=== PATIENT | male | born 1935 | race Caucasian/White ===

== ENCOUNTER 2023-08-09 22:54 | Inpatient (IN) | payer MEDICARE, BC, SELFPAY ==
[2023-08-09 19:25] VITALS: BMI 25.2
[2023-08-09 19:27] VITALS: BP 154/78
--- NOTE | 2023-08-09 20:08 | ED.GENMED ---
History of Present Illness
General
Chief Complaint: Fall
Source: patient
Exam Limitations: none
Time Seen by Provider: 08/09/23 19:28
Travel History
Have you had any contact with someone who has COVID-19?: No
Do you have any symptoms of coronavirus? Fever > 100 degrees, chills, cough, shortness of breath, sore throat, loss of taste or smell, muscle aches, or headache?: No
History of Present Illness
History of Present Illness:
This is a 87 year old male that comes in with c/o left upper leg pain. States that he and his care give where doing a Jigsaw puzzle and one of the pieced fell on the floor. States that he bend over to pear picker the piece and he started to slip
backward. States that he fell injury the left leg. States that he did not hit his head or any LOC. States that when he tries to move the left leg he has pain. Denies any fever, chills, chest pain, SOB, abd pain, nausea, vomiting, headache,
dizziness.
Past History
Past History
ED Past Medical History: CAD, Cancer (Colon, Prostate, Skin, Rectal), HTN, Hypercholesterolemia, CO, Psychiatric (Depression) and Other (PNA, IBS)
ED Past Surgical History: Bowel resection, Cardiac (Stent), Orthopedic (Left rotator cuff, Left hip surgery, ), Tonsilectomy and Other (Ileostomy, Hernia repair, Rectum removed, )
Social History
Tobacco: Non-smoker
Alcohol: Occasional
Drug: None
Personal:
Living: alone (Has care givers)
Employment: Employed
Family History
Family History: Hypertension
Review of Systems
Review of Systems
All Other Systems: ROS reviewed and negative except as documented in HPI and ROS
Constitutional: Reports no symptoms; Denies fever or chills
EENT: Reports no symptoms
Respiratory: Reports no symptoms; Denies cough or trouble breathing
Cardiac: Reports no symptoms; Denies chest pain
ABD/GI: Reports other (Ileostomy); Denies abdominal pain, nausea or vomiting
: Reports other (Indwelling pringle catheter)
Musculoskeletal: Reports joint pain (Left hip/femur pain)
Skin: Reports no symptoms
Neurological: Reports no symptoms; Denies dizzy
Psychiatric: Reports no symptoms
Phy Exam
General Physical Exam
General Presentation: no apparent distress
General age: appears stated age
General Skin: warm and dry
General Habitus: elderly
General Mental: alert
General Hydration: appears well hydrated
ENT Exam
ENT Exam: TM's normal, pharynx normal and neck supple
Eye Exam
Eye Exam: EOMI
Cardiovascular Exam
Cardiovascular Exam: regular rate/rhythm, no edema and normal peripheral pulses
Pulmonary Exam
Pulmonary Exam: no respiratory distress, chest non tender, no rhonchi, no wheezing, no cough and other (Fine crackles at bases)
Gastrointestinal Exam
Gastrointestinal Exam: normal bowel sounds, non tender, soft, no organomegaly, no pulsatile mass and non distended
Musculoskeletal Exam
Musculoskeletal Exam: no edema and other (Left upper leg tender to palpation. LImited movement due to pain. Negative for any shortening. or rotation)
Skin Exam
Skin Exam: normal color, warm/dry, no rash, no petechia and other (Skin cancer on top of head)
Psychiatric Exam
Psychiatric Exam: normal mood/affect
Course
Orders/Labs/Results
Orders:
Orders
08/09/23 20:05
CBC/With Diff [Complete Blood Count/With Diff] Urgent
CMP [Comprehensive Metabolic Panel] Urgent
08/09/23 20:08
Hip, Left 2-3 Views [CR Hip - LT w/wo Pel 2-3 Vw*] Urgent
Comment:
Reason For Exam: fALL, PAIN
Include a pelvis x-ray?: Yes
08/09/23 21:00
Acetaminophen [Tylenol] 1,000 mg PO NOW STA
Femur, Left 2 View [CR Femur - Left Min 2 Vw] Urgent
Comment:
Reason For Exam: Pain, fall
Abnormal Lab Results
08/09/23
20:05
RBC 4.43 L 10^6/uL
(4.70-6.10)
MCV 100.0 H fL
(80.0-94.0)
MCH 33.0 H pg
(27.0-31.0)
MPV 12.1 H fL
(7.4-10.4)
Absolute Monos (auto) 1.0 H 10^3/uL
(0.1-0.6)
Monocytes % 10.2 H %
(1.7-9.3)
BUN 34 H mg/dl
(9-20)
Creatinine 2.0 H mg/dL
(0.7-1.3)
Glucose 123 H mg/dl
(70-99)
08/09/23 20:05
08/09/23 20:05
Anemia, Chronic renal insufficiency, Glucose nonfasting.
Vital Signs
Initial and Last Documented VS:
Initial Vital Signs
Temp Pulse Resp BP Pulse Ox
98.1 F 69 20 154/78 98
08/09/23 19:27 08/09/23 19:27 08/09/23 19:27 08/09/23 19:27 08/09/23 19:27
Last Documented Vital Signs
Temp Pulse Resp BP Pulse Ox
98.1 F 69 20 154/78 98
08/09/23 19:27 08/09/23 19:27 08/09/23 19:27 08/09/23 19:27 08/09/23 19:27
MDM/Problems Addressed
Differential Diagnosis Includes:
Left hip fracture. Left femur fracture
MDM/Problems Addressed:
This is a 87 year old male that comes in with c/o left hip/femur pain. States that he bent over to pear picker a puzzle piece and he fell backward.
Will check labs and X-ray
Back into see patient. Explained that the Prosthesis in place and here does not appear to be an obvious fracture. However, there is a questionable area that could be Periprosthetic fracture. Patient was unable to walk when he stood. Will admit.
Hospitalist notified.
Chronic conditions affecting care:
NA
Acute Exacerbation and/or Progression of Chronic Illness:
NA
*Pulse Oximetry
Patient hypoxic: no
*EKG
Interpreted by ED Provider?: NA
Rate: EKG- N/A
*Deputy Chief Counsel Interpretation
Rate: Deputy Chief Counsel- N/A
*Critical Care Note
Total Time (30-74mins, 75-104mins- exclusive of procedures): Not Applicable
ED Attending Note
-
Portions of this chart may have been created with voice recognition software.� Occasional wrong word or��sound alike� substitutions may have occurred due to the inherent limitations of voice recognition software.
Discharge Plan
Departure
Patient Disposition: Admit
Date of Disposition: 08/09/23
Time of Disposition: 21:51
Admit to: Med/Surg
Presentation/result/management discussed w/ accepting MD/DO: Hospitalist
Patient with high blood pressure during this ER visit?: Yes
Condition: Good
Covid-19: Not Applicable
Discharge Problem:
Accidental fall, Questionable Periprosthetic fracture, Ambulatory dysfunction
Prescriptions:
No Action
latanoprost 1 DROP drops
1 drp BOTH EYES HS
Patient Comments:
BOTH EYES
ranolazine 500 MG tablet extended release 12 hr
1,000 mg PO BID Qty: 120 0RF
Eliquis 2.5 MG tablet
2.5 mg PO BID Qty: 120 0RF
aspirin 81 mg Tablet,Delayed Release (Dr/Ec)
81 mg PO DAILY
tamsulosin 0.4 mg capsule
0.4 mg PO QPM
atorvastatin 40 mg Tablet
40 mg PO DAILY Qty: 30 0RF
clopidogrel 75 mg Tablet
75 mg PO DAILY Qty: 30 0RF
isosorbide mononitrate 60 mg Tablet Extended Release 24 Hr
60 mg PO BID Qty: 60 0RF
metoprolol succinate 25 mg Tablet Extended Release 24 Hr
12.5 mg PO DAILY Qty: 30 0RF
Referrals:
Robbin Haile MD [Family Provider] -
Interventions
Interventions:
*Risk Screen - Suicide Last Done: 08/09/23 19:27
*General Assessment Last Done: 08/09/23 19:27
*Neglect/Abuse Screening Last Done: 08/09/23 19:27
ED-Musculoskeletal Assessment Last Done: 08/09/23 19:44
ED- Neurological Assessment Last Done: 08/09/23 19:44
ED-Skin Assessment Last Done: 08/09/23 19:44
[2023-08-09 20:11] LABS: % Basophils 0.3 % (0-2); % Eosinophils 2.4 % (0-6); % Immature Granulocytes 0.4 % (0-0.5); % Lymphocytes 20.9 % (20.5-51.1); % Monocytes 10.2 % (1.7-9.3); % Neutrophils 65.8 % (42.2-75.2); Absolute Eosinophils 0.2 10^3/uL (0-0.7); Absolute Lymphocytes 1.9 10^3/uL (1.2-3.4); Absolute Neutrophils 6.1 10^3/uL (1.4-6.5); Hematocrit 44.3 % (39.0-52.0); Hemoglobin 14.6 g/dL (13.0-18.0); Mean Platelet Volume 12.1 fL (7.4-10.4); Nucleated Red Blood Cells % 0 % (-); Platelet Count 141 10^3/uL (130-400); Red Blood Cell Count 4.43 10^6/uL (4.70-6.10); Red Cell Dist. Width 13.9 % (11.5-14.5); White Blood Cell Count 9.3 10^3/uL (4.8-10.8)
[2023-08-09 20:28] LABS: ALT (SGPT) 27 U/L (0-50); AST (SGOT) 38 U/L (17-59); Albumin 3.7 g/dl (3.5-5.0); Alkaline Phosphatase 82 U/L (38-126); Blood Urea Nitrogen 34 mg/dl (9-20); Carbon Dioxide 24 mmol/L (22-30); Chloride 103 mmol/L (98-107); Glucose 123 mg/dl (70-99); Potassium 4.5 mmol/L (3.5-5.1); Sodium 137 mmol/L (135-145); Total Bilirubin 0.7 mg/dl (0.2-1.3); Total Protein 6.5 g/dl (6.3-8.2); eGFR 31.71
--- NOTE | 2023-08-09 22:35 | HPS.HSE ---
Addendum entered and electronically signed by Vincent Arredondo DO 08/09/23 23:17:
Patient seen and examined independently. Agree with findings and plan as set forth by Sil Lopez PA-C.
Patient is an 87y M with PMH significant for ASCVD, A-Fib and CHF who presents to ED complaining of R hip pain s/p fall at home. Patient states that he bent to pick something up from the floor and lost his balance. He fell, landing on his L
side. Patient notes immediate pain in the L hip and was unable to get up or bear weight without significant pain. Patient presented to the ED for further evaluation.
Ass:
Left Hip Pain - Suspected Periprosthetic Fracture of the Left Hip
Fall at Home
ASCVD
CKD III
Ischemic Cardiomyopathy / Chronic HFrEF
Paroxysmal Atrial Fibrillation
Chronic Hypotension
Plan:
Admit for further evaluation and treatment.
Pain control, NPO, non-weight bearing overnight.
Ortho eval in the AM for further recommendations.
Check CT for further evaluation of the L hip / area.
Will hold Eliquis acutely in event that patient does require any operative intervention.
Continue other usual outpatient medications.
PT / OT evaluations once cleared by Ortho.
Original Note:
Family Physician
-
Family Physician: Robbin Haile
Chief Complaint
-
Fall
History of Present Illness
Patient is an 87-year-old male past medical history of CAD, CHF, A-fib and CKD who presents with left upper leg pain following a fall. Patient states he was doing a jigsaw puzzle with his caregiver when one of the pieces fell on the floor. He
states he bent over to sisal picker the piece, lost his balance and fell backwards. He states he fell landing on his left leg. He denies hitting his head during the event. Patient notes increased pain with movement of his left leg, and with attempts to
ambulate. Work-up in the emergency department revealed a possibly left periprosthetic hip fracture.
Medical History
Past Medical History
Past Medical History: Reports Other
Additional Past Medical History:
Coronary Artery Disease s/p Stent
Chronic HFrEF
Ischemic Cardiomyopathy
Paroxysmal Atrial Fibrillation
Essential Hypertension
Hyperlipidemia
CKD Stage 3B
Prostate Cancer s/p Radioactive Seed Implants
Colon Cancer / Rectal Cancer
Past Surgical History: Reports Other
Additional Past Surgical History:
Cardiac Stent
Partial Colectomy followed by Total Colectomy with Ileostomy
Hernia Repair
Left Total Hip Replacement
Left Rotator Cuff
Social History
Tobacco: Non-smoker
Alcohol: Occasional
Drug: None
Employment: Retired
Family History
Family History: Not pertinent
Allergies / Home Medications
Allergies reflects when Allergies were last updated in [employer].
Home Medications with original date entered in [employer]
Allergy/Medication List:
Allergies
Allergy/AdvReac Type Severity Reaction Status Date / Time
No Known Allergies Allergy Verified 09/16/22 19:31
Home Medications
latanoprost 0.005 % eye drops 1 drp BOTH EYES HS Eye condition 05/22/11
apixaban 2.5 mg tablet (Eliquis) 2.5 mg PO BID #120 tabs 11/06/20
ranolazine 500 mg tablet,extended release,12 hr 1,000 mg PO BID #120 tabs 11/06/20
aspirin 81 mg tablet,delayed release 81 mg PO DAILY Blood clot prevention/tx 09/16/22
atorvastatin 40 mg tablet 40 mg PO DAILY #30 tabs 09/20/22
metoprolol succinate 25 mg tablet,extended release 24 hr 12.5 mg PO DAILY #30 tabs 09/20/22
isosorbide mononitrate 60 mg tablet,extended release 24 hr 60 mg PO HS 08/09/23
midodrine 2.5 mg tablet 2.5 mg PO BIDPRN PRN SBP Less Than 120 08/09/23
torsemide 5 mg tablet 5 mg PO DAILY 08/09/23
Review of Systems
-
A 12 point ROS was completed and negative except as noted: Yes
Constitutional: Denies Fever or Chills
Respiratory: Denies Cough or Trouble Breathing
Cardiac: Denies Chest Pain or Palpitations
Physical Exam
Vital Signs
Vital Signs
Temp Pulse Resp BP Pulse Ox
98.1 F 69 20 154/78 98
08/09/23 19:27 08/09/23 19:27 08/09/23 19:27 08/09/23 19:27 08/09/23 19:27
Physical Exam
General: Comfortable and Conversant
HEENT: Anicteric and Moist mucous membranes
Respiratory: Clear and Non Labored Respirations
Cardiac: S1/S2 and Regular Rhythm
GI: Soft, Non Tender and Ostomy
Rectal: Deferred by Provider
Musculoskeletal: No Clubbing, No Cyanosis and No Edema
Skin: Warm and Dry
Neuro: Awake, Alert, Oriented and Nonfocal/grossly intact
Laboratory Results
-
08/09/23 20:05
08/09/23 20:05
Laboratory Results
Total Bilirubin 0.7 mg/dl (0.2-1.3) 08/09/23 20:05
AST 38 U/L (17-59) 08/09/23 20:05
ALT 27 U/L (0-50) 08/09/23 20:05
Alkaline Phosphatase 82 U/L (38-126) 08/09/23 20:05
Data Reviewed
-
Diagnostic Radiology: Image Personally Visualized and interpreted
Lab Data: Labs Reviewed by me
Impression/Plan
-
Left Hip Pain, concern for periprosthetic hip fracture
-Consult Ortho
-Check CT scan
-Continue non-weight bearing status
-Start Tylenol 1000mg TID with oxycodone prn for breakthrough
-Hold Eliquis should patient require intervention
Coronary Artery Disease s/p Stent
-Continue aspirin
-Continue isosorbide mononitrate and ranolazine
Chronic HFrEF
Ischemic Cardiomyopathy
-Continue torsemide
-Continue fluid restriction
-Monitor Is&Os and Daily Weights
Paroxysmal Atrial Fibrillation
-Eliquis on hold should patient require procedure
-Continue metoprolol for rate control
Hypotension
-Continue midodrine prn
Hyperlipidemia
-Continue atorvastatin
CKD Stage 3B
-Creatinine at baseline
Hx Prostate Cancer s/p Radioactive Seed Implants
Hx Colon Cancer / Rectal Cancer s/p Colectomy with Ileostomy
DVT proph: SCDs until able to resume Eliquis
Code Status: Full Code
[2023-08-09 23:30] VITALS: BP 125/75
[2023-08-10] MEDS: ROXICODONE 5 MG PO (00:32)
[2023-08-10 06:00] VITALS: BMI 24.9
--- NOTE | 2023-08-10 06:20 | PTCARENOTE ---
IV team notified that pt did have iv access when arriving from ED to unit.
[2023-08-10 06:35] LABS: Hematocrit 38.5 % (39.0-52.0); Hemoglobin 13.1 g/dL (13.0-18.0); Mean Platelet Volume 12.1 fL (7.4-10.4); Platelet Count 135 10^3/uL (130-400); Red Blood Cell Count 3.97 10^6/uL (4.70-6.10); Red Cell Dist. Width 13.6 % (11.5-14.5); White Blood Cell Count 9.4 10^3/uL (4.8-10.8)
[2023-08-10 06:58] LABS: Blood Urea Nitrogen 31 mg/dl (9-20); Calcium 8.7 mg/dl (8.4-10.2); Carbon Dioxide 25 mmol/L (22-30); Chloride 104 mmol/L (98-107); Estimated Creatinine Clearance 34 ml/min; Glucose 107 mg/dl (70-99); Potassium 4.3 mmol/L (3.5-5.1); Sodium 136 mmol/L (135-145); eGFR 35.98
--- NOTE | 2023-08-10 07:22 | W.PN.HOSP.TC ---
Today's Communication/Plan
-
Await CT of left hip
Orthopedic input
Continue to hold anticoagulation for possible intervention as needed
Stable hemodynamically no signs of any cardiorespiratory distress and renal status at baseline
Assessment / Plan
Assessment / Plan
Patient is an 87-year-old male past medical history of CAD, CHF, A-fib and CKD who presents with left upper leg pain following a fall.� Patient states he was doing a jigsaw puzzle with his caregiver when one of the pieces fell on the floor.� He
states he bent over to cherry picker operator the piece, lost his balance and fell backwards. He states he fell landing on his left leg.� He denies hitting his head during the event.� Patient notes increased pain with movement of his left leg, and with attempts to
ambulate. Work-up in the emergency department revealed a possibly left periprosthetic hip fracture.
:
�Left Hip Pain, concern for periprosthetic hip fracture
-Post mechanical fall
-Consult Ortho
-Check CT scan
-Continue non-weight bearing status
-Start Tylenol 1000mg TID with oxycodone prn for breakthrough
-Hold Eliquis should patient require intervention
Coronary Artery Disease s/p Stent
-Continue aspirin
-Continue isosorbide mononitrate and ranolazine
Chronic HFrEF
Ischemic Cardiomyopathy
-Continue torsemide
-Continue fluid restriction
-Monitor Is&Os and Daily Weights
Paroxysmal Atrial Fibrillation
-Eliquis on hold should patient require procedure
-Continue metoprolol for rate control
Hypotension
-Continue midodrine prn
Hyperlipidemia
-Continue atorvastatin
CKD Stage 3B
-Creatinine at baseline
Hx Prostate Cancer s/p Radioactive Seed Implants
Hx Colon Cancer / Rectal Cancer s/p Colectomy with Ileostomy
DVT proph: SCDs until able to resume Eliquis
Code Status: Full Code
Anticipated Discharge: 24 - 48 hours
Subjective/Interval History
-
Date of Service: August 10, 2023
Still referring pain on any attempted trying to elevate bed off plane of bed referred pain to the lateral aspect of his left hip and trochanteric area.
Objective Data
-
Labs:
Laboratory Results
08/09/23 08/10/23
20:05 05:16
WBC 9.3 9.4
Hgb 14.6 13.1
Hct 44.3 38.5 L
Plt Count 141 135
Sodium 137 136
Potassium 4.5 4.3
Chloride 103 104
Carbon Dioxide 24 25
BUN 34 H 31 H
Creatinine 2.0 H 1.8 H
Glucose 123 H 107 H
Calcium 9.0 8.7
Total Bilirubin 0.7
AST 38
ALT 27
Alkaline Phosphatase 82
Vital Signs:
Vital Signs
Temp Pulse Resp BP Pulse Ox
98.6 F 77 18 125/75 95
08/09/23 23:30 08/09/23 23:30 08/09/23 23:30 08/09/23 23:30 08/09/23 23:30
I&O
08/09/23 08/10/23 08/11/23
06:59 06:59 06:59
Intake Total 240 / 240
Output Total 1225 / 1225
Balance -985 / -985
Review of Systems
-
History Source: Patient
All other systems: Not reviewed unless documented
Constitutional: Reports No Symptoms
Musculoskeletal: Reports Muscle Pain, Muscle Stiffness, Arthralgias and Myalgias
Physical Exam
-
General: Well Developed
HEENT: Atraumatic
Respiratory: Clear to Auscultation
Cardiac: Irregular Rhythm
GI: Soft, Nontender and Ostomy (Ileostomy functioning/)
Musculoskeletal: Edema, Left Lower Extrem (He referred to our aspect near trochanteric prominence mild left groin pain especially on elevation)
Neuro: Awake and Nonfocal/Grossly Intact
Psych: Calm
Data Reviewed
-
Total Time Spent with Patient (in minutes): 56
Diagnostic Radiology: Report Reviewed by me (Still pending read but obvious prior left hip arthroplasty)
Labs: Labs Reviewed by me (Creatinine stable and in keeping with prior history of CKD 3B/hemoglobin 13.1)
[2023-08-10 07:25] VITALS: BP 147/67
--- NOTE | 2023-08-10 08:15 | W.PN.UPDATE ---
Addendum entered and electronically signed by Maycol Sanchez MD 08/10/23 09:36:
Patient seen and examined. Full consult dictated.
Original Note:
Update Note
Progress Note Update
Patient unfortunately had a fall yesterday injuring his left hip. He has inability to bear weight. X-rays here at [facility] show nondisplaced periprosthetic femur fracture. He is scheduled to undergo CT scan this morning. Prior left
hip placement was done by Dr Donaldson 10 years ago. Shilo on hold for now and would require 72-hour washout if surgery needs to be undertaken. Await CT scan for definitive treatment recommendations.
[2023-08-10] MEDS: TYLENOL 1000 MG PO ×3 (08:45→22:31)
[2023-08-10] MEDS: LIPITOR 40 MG PO (08:45)
[2023-08-10] MEDS: ASPIR LOW (ENTERIC COATED) 81 MG PO (08:45)
[2023-08-10] MEDS: DEMADEX 5 MG PO (08:46)
[2023-08-10] MEDS: RANEXA EXTENDED RELEASE 1000 MG PO ×2 (08:46→20:36)
[2023-08-10] MEDS: TOPROL XL 12.5 MG PO (08:46)
--- NOTE | 2023-08-10 13:06 | W.PN.UPDATE ---
Update Note
Progress Note Update
CT scan reviewed. Spoke with patient, caregiver and son. Nondisplaced fracture about what appears to be a stable bony ingrowth stem from his hip replacement 12 years ago by Anika at [place]. Recommend NWB for 4-6 weeks with reevaluation in
the office in [address] Villatoro for further recommendations. Explained that WB or falling may lead to a displaced fracture which would require revision surgery. Also explained the possibility of fracture not healing with conservative care.
Plan as above. Please contact with any further questions.
[2023-08-10 15:20] VITALS: BP 137/63
--- NOTE | 2023-08-10 16:32 | CM ---
Patient seen with family, initial assessment completed. Patient reports he lives in a two story home with a first floor set up, two steps to enter. Patient reports using a walker, VN in past but unsure with who, [facility]. Patient confirms PCP
Robbin Haile, pharmacy [facility]. CM will watch for PT/OT evaluations. CM will continue to follow for discharge planning needs.
Plan; dependent on PT evaluations/further recommendations.
[2023-08-10 20:56] LABS: Urine Albumin Trace (Neg - Trace); Urine Bilirubin Negative (Negative); Urine Character Clear (Clear); Urine Color Yellow; Urine Glucose Negative (Negative); Urine Ketone Negative (Negative); Urine Leukocyte 2+ (Negative); Urine Nitrite Positive (Negative); Urine Occult Blood 4+ (Negative); Urine Urobilinogen Negative (Neg - 1+)
[2023-08-10 21:12] LABS: Urine Bacteria Few (Negative); Urine Red Blood Cell >100 /HPF (0-2); Urine White Cell >100 /HPF (0-5)
[2023-08-10] MEDS: XALATAN OPHTHALMIC SOLUTION 1 DROP BOTH EYES (22:31)
[2023-08-10] MEDS: IMDUR (EXTENDED RELEASE) 60 MG PO (22:31)
[2023-08-11 05:42] VITALS: BMI 24.8
[2023-08-11 07:20] VITALS: BP 153/70
--- NOTE | 2023-08-11 07:53 | W.PN.HOSP.TC ---
Today's Communication/Plan
-
PT OT eval.
Assessment / Plan
Assessment / Plan
Physical exam:
General: Chronically ill
HEENT: Normocephalic, Atraumatic and Moist Mucous Membranes
Respiratory: Clear to Auscultation; Negative Wheezes, Rales or Rhonchi
Cardiac: Regular Rhythm and S1/S2
GI: Soft, Nontender and Nondistended. Ostomy in place
Musculoskeletal: Left hip discomfort. No Clubbing, No Cyanosis and No Edema
Neuro: Awake, Alert and Oriented
Psych: Calm
CT hip:
Oblique fracture periprosthetic femoral component left hip described on x-ray report is confirmed. Essentially nondisplaced.
A/P:
�Left Hip Pain, concern for periprosthetic hip fracture:
-Ortho consult appreciated
-NWB 4-6 wks recommended and repeat images in 3 wks.
-Restart Eliquis today
-PT OT eval pending
-Updated son at bedside today
Delirium:
-Multifactorial, in-hospital and narcotics and doubt infection (urine cx sent-->would cautiously interpret in the setting of afebrile and no leukocytosis)
Coronary Artery Disease s/p Stent
-Continue aspirin
-Continue isosorbide mononitrate and ranolazine and eliquis
Chronic HFrEF
Ischemic Cardiomyopathy
-Continue torsemide
-Continue fluid restriction
-Monitor Is&Os and Daily Weights
Paroxysmal Atrial Fibrillation
-Eliquis restarted
-Continue metoprolol for rate control
Hypotension
-Continue midodrine prn
Hyperlipidemia
-Continue atorvastatin
CKD Stage 3B
-Creatinine at baseline
-Creatinine 1.8 today
Hx Prostate Cancer s/p Radioactive Seed Implants
Hx Colon Cancer / Rectal Cancer s/p Colectomy with Ileostomy. Chronic Olguin.
DVT proph: SCDs and Eliquis
Code Status: Full Code
Anticipated Discharge: 24 - 48 hours
Subjective/Interval History
-
Date of Service: August 11, 2023
Patient alert and back to his baseline. Reported some hallucinations prior to today. Afebrile. Pain in the hip area is not a major issue but he has not moved much yet.
Objective Data
-
Vital Signs:
Vital Signs
Temp Pulse Resp BP Pulse Ox
98.6 F 54 18 137/63 97
08/10/23 15:20 08/10/23 15:20 08/10/23 15:20 08/10/23 15:20 08/10/23 15:20
I&O
08/10/23 08/11/23 08/12/23
06:59 06:59 06:59
Intake Total 240 / 240 840 / 840
Output Total 1225 / 1225 1050 / 1050
Balance -985 / -985 -210 / -210
Review of Systems
-
All other systems: Reviewed and negative
[2023-08-11] MEDS: TYLENOL 1000 MG PO ×2 (09:24→22:04)
[2023-08-11] MEDS: RANEXA EXTENDED RELEASE 1000 MG PO ×2 (09:25→20:34)
[2023-08-11] MEDS: ASPIR LOW (ENTERIC COATED) 81 MG PO (09:25)
[2023-08-11] MEDS: TOPROL XL 12.5 MG PO (09:25)
[2023-08-11] MEDS: LIPITOR 40 MG PO (09:26)
[2023-08-11] MEDS: DEMADEX 5 MG PO (09:26)
[2023-08-11] MEDS: ELIQUIS 2.5 MG PO ×2 (09:53→20:35)
--- NOTE | 2023-08-11 11:31 | WOUNDNOTE ---
PAYAL RN NOTE: Patient admitted for L hip periprosthetic femur fracture, see computer for complete PMH. Received patient in bed, on air overlay, caregiver at bedside. 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 Has own [employer] 2 piece
appliance in use, no leakage. Own supplies at bedside and states he is independent with care. Changes pouch 2 x per week, no issues with leakage. No reported stoma or peristomal skin issues states patient. Nurse Lay confirmed that sacrum and heels
are intact. Patient states plan is for discharge tomorrow.
[2023-08-11 13:25] VITALS: BP 99/47; PULSE 56; O2SAT 97
[2023-08-11 13:28] VITALS: BP 99/47; PULSE 56; O2SAT 97
--- NOTE | 2023-08-11 15:02 | CM ---
CM following re: discharge planning.
Reviewed pt's chart, met with pt.
PT and OT evaluations noted - SNF level of care recommended. Pt is aware, expressed his agreement. A list of SNFs provided to the pt. Pt preferred [facility].
A referral to [facility] made. Awaiting for determination.
CM will follow to assist pt with discharge to [facility].
[2023-08-11 15:15] VITALS: BP 124/56
[2023-08-11] MEDS: TYLENOL PO (16:15)
[2023-08-11] MEDS: IMDUR (EXTENDED RELEASE) 60 MG PO (22:04)
[2023-08-11] MEDS: XALATAN OPHTHALMIC SOLUTION 1 DROP BOTH EYES (22:04)
[2023-08-11 23:18] VITALS: BP 154/67
[2023-08-12 05:08] VITALS: BMI 24.7
[2023-08-12 05:59] LABS: Hematocrit 39.9 % (39.0-52.0); Hemoglobin 13.5 g/dL (13.0-18.0); Mean Corp Hgb Conc. 33.8 g/dL (33.0-37.0); Mean Corpuscular Hgb 32.8 pg (27.0-31.0); Mean Corpuscular Volume 96.8 fL (80.0-94.0); Mean Platelet Volume 11.8 fL (7.4-10.4); Platelet Count 134 10^3/uL (130-400); Red Blood Cell Count 4.12 10^6/uL (4.70-6.10); Red Cell Dist. Width 13.6 % (11.5-14.5); White Blood Cell Count 9.8 10^3/uL (4.8-10.8)
[2023-08-12 06:30] LABS: Blood Urea Nitrogen 36 mg/dl (9-20); Calcium 8.7 mg/dl (8.4-10.2); Carbon Dioxide 24 mmol/L (22-30); Chloride 104 mmol/L (98-107); Estimated Creatinine Clearance 36 ml/min; Glucose 87 mg/dl (70-99); Potassium 4.2 mmol/L (3.5-5.1); Sodium 137 mmol/L (135-145); eGFR 38.53
[2023-08-12 07:46] VITALS: BP 126/60
--- NOTE | 2023-08-12 08:34 | W.PN.HOSP.TC ---
Today's Communication/Plan
-
Continue current management. Discharge planning in progress
Assessment / Plan
Assessment / Plan
Physical exam:
General: Chronically ill
HEENT: Normocephalic, Atraumatic and Moist Mucous Membranes
Respiratory: Clear to Auscultation; Negative Wheezes, Rales or Rhonchi
Cardiac: Regular Rhythm and S1/S2
GI: Soft, Nontender and Nondistended. Ostomy in place
Musculoskeletal: Left hip discomfort. No Clubbing, No Cyanosis and No Edema
Neuro: Awake, Alert and Oriented
Psych: Calm
CT hip:
Oblique fracture periprosthetic femoral component left hip described on x-ray report is confirmed. Essentially nondisplaced.
A/P:
�Left Hip Pain, concern for periprosthetic hip fracture:
-Ortho consult appreciated
-NWB 4-6 wks recommended and repeat images in 3 wks.
-Restart Eliquis since 08/10
-PT OT eval recommending skilled rehab
-Updated son at bedside yesterday
Delirium:
-Multifactorial, in-hospital and narcotics
Bacteriuria:
-Doubt infection (urine cx sent-->would cautiously interpret in the setting of afebrile and no leukocytosis)
Coronary Artery Disease s/p Stent
-Continue aspirin
-Continue isosorbide mononitrate and ranolazine and eliquis
Chronic HFrEF
Ischemic Cardiomyopathy
-Continue torsemide
-Continue fluid restriction
-Monitor Is&Os and Daily Weights
Paroxysmal Atrial Fibrillation
-Eliquis restarted
-Continue metoprolol for rate control
Hypotension
-Continue midodrine prn
Hyperlipidemia
-Continue atorvastatin
CKD Stage 3B
-Creatinine at baseline
-Creatinine 1.8 today
Hx Prostate Cancer s/p Radioactive Seed Implants
Hx Colon Cancer / Rectal Cancer s/p Colectomy with Ileostomy. Chronic Olguin.
DVT proph: SCDs and Eliquis
Code Status: Full Code
Anticipated Discharge: Today
Subjective/Interval History
-
Date of Service: August 12, 2023
Patient seen and examined. Afebrile
Objective Data
-
Labs:
Laboratory Results
08/12/23
04:54
WBC 9.8
Hgb 13.5
Hct 39.9
Plt Count 134
Sodium 137
Potassium 4.2
Chloride 104
Carbon Dioxide 24
BUN 36 H
Creatinine 1.7 H
Glucose 87
Calcium 8.7
Vital Signs:
Vital Signs
Temp Pulse Resp BP Pulse Ox
98.2 F 53 16 126/60 95
08/12/23 07:46 08/12/23 07:46 08/12/23 07:46 08/12/23 07:46 08/12/23 07:46
I&O
08/11/23 08/12/23 08/13/23
06:59 06:59 06:59
Intake Total 840 / 840 1420 / 1420
Output Total 1050 / 1050 1600 / 1600
Balance -210 / -210 -180 / -180
[2023-08-12] MEDS: TOPROL XL 12.5 MG PO (09:14)
[2023-08-12] MEDS: TYLENOL 1000 MG PO (09:14)
[2023-08-12] MEDS: DEMADEX 5 MG PO (09:15)
[2023-08-12] MEDS: RANEXA EXTENDED RELEASE 1000 MG PO (09:15)
[2023-08-12] MEDS: ASPIR LOW (ENTERIC COATED) 81 MG PO (09:15)
[2023-08-12] MEDS: LIPITOR 40 MG PO (09:15)
[2023-08-12] MEDS: ELIQUIS 2.5 MG PO (09:15)
--- NOTE | 2023-08-12 11:42 | W.DCSUMMARY ---
Discharge Summary
Discharge Data
Date of Admission: 08/09/23
Date of Discharge: 08/12/23
-
Pending Results: No
Hospital Course
Patient 87 years old male with history of A-fib, CAD, CHF, CKD, hypertension, hyperlipidemia, prostate cancer, presented to the hospital with a fall. Orthopedic was consulted. Patient was diagnosed with nondisplaced fracture of the left hip.
Orthopedic recommended nonweightbearing for 4 to 6 weeks and reevaluation in the office in about 3 weeks. Patient participated with physical therapy and rehab recommended. Patient also had some mild delirium that has been improving. Patient also
had some bacteriuria with E. coli but no need to treat since he remained afebrile and no leukocytosis and mental status back to his baseline along with a chronic Olguin catheter. Patient is going to be discharged for further rehabilitation.
Discharge duration: 34 minutes
Discharge Plan
-
Patient Disposition: Group Home/SNF
Discharge Diagnosis/Procedures: Acute left periprosthetic femoral fracture, nondisplaced. Delirium. Chronic systolic congestive heart failure. History of coronary artery disease. Paroxysmal atrial fibrillation. Hypertension. Chronic kidney
disease stage III. History of prostate cancer.
Diet: Low Cholesterol
Activity: Do not bear weight L leg
Other Services: PT and OT
Referrals:
Maycol Sanchez MD [Active] - in two to three weeks
Robbin Haile MD [Family Provider] - in less than 1 week
Prescriptions:
New
acetaminophen [Tylenol Extra Strength] 500 mg Tablet
1,000 mg PO TID Qty: 10 0RF
oxycodone 5 mg Tablet
5 mg PO Q4HPRN PRN (Reason: moderate/severe pain) Qty: 4 0RF
Continued
latanoprost 1 DROP drops
1 drp BOTH EYES HS
Patient Comments:
BOTH EYES
ranolazine 500 MG tablet extended release 12 hr
1,000 mg PO BID Qty: 120 0RF
aspirin 81 mg Tablet,Delayed Release (Dr/Ec)
81 mg PO DAILY
atorvastatin 40 mg Tablet
40 mg PO DAILY Qty: 30 0RF
metoprolol succinate 25 mg Tablet Extended Release 24 Hr
12.5 mg PO DAILY Qty: 30 0RF
torsemide 5 mg Tablet
5 mg PO DAILY
midodrine 2.5 mg Tablet
2.5 mg PO BIDPRN PRN (Reason: SBP Less Than 120)
isosorbide mononitrate 60 mg tablet extended release 24 hr
60 mg PO HS
Eliquis 2.5 MG tablet
2.5 mg PO BID
Discharge Orders:
Discharge Patient (As Directed); Ordered 08/12/23
Ordered By: Efrain Mcintosh
Discharge Date and Time
Discharge Date/Time: 08/12/23 14:10
Print Language: SCOTTISH
--- NOTE | 2023-08-12 11:53 | CM ---
Addendum entered by Carolyn Bustamante 08/12/23 13:57:
Spoke with patients private caregiver, she or the family will bring ileostomy supplies to the facility.
[facility] updated re 2 pm transport.
Addendum entered by Carolyn Bustamante 08/12/23 12:17:
Bed available at [facility] for today. No auth needed.
[facility]
Report# [phone]

Original Note:
Per MD cleared for d/c.
TC to [facility], left vm re bed availability.
Updates via [facility].
Patient agreeable to [facility] if bed available.
No insurance auth required.
Patient will require ambulance transport, medical necessity forms on chart.
IMM completed.
Plan: skilled rehab, await bed availability. T
[2023-08-12 13:33] VITALS: BP 107/44
== END 2023-08-12 14:10 | DRG 560 ==
LOC: 2 SOUTH 22:54
PROVIDERS: Clinical Nurse Specialist Family Health; Physician Assistant Medical; Registered Nurse; ADMITTING PHYSICIAN Hospitalist; ATTENDING PHYSICIAN Hospitalist; CONSULT PHYSICIAN Orthopaedic Surgery; EMERGENCY PHYSICIAN Student in an Organized Health Care Education/Training Program; FAMILY PHYSICIAN Family Medicine
DX: M97.02XA Periprosthetic fracture around internal prosthetic left hip joint, initial encounter (principal); I13.0 Hypertensive heart and chronic kidney disease with heart failure and stage 1 through stage 4 chronic kidney disease, or unspecified chronic kidney disease; I50.22 Chronic systolic (congestive) heart failure; W07.XXXA Fall from chair, initial encounter; I48.0 Paroxysmal atrial fibrillation; N18.32 Chronic kidney disease, stage 3b; I25.10 Atherosclerotic heart disease of native coronary artery without angina pectoris; E78.00 Pure hypercholesterolemia, unspecified; R41.0 Disorientation, unspecified; Z79.01 Long term (current) use of anticoagulants; Z85.46 Personal history of malignant neoplasm of prostate
CPT/HCPCS: 73502; 73552; 73700; 80048; 80053; 81003; 81015; 85025; 85027; 87077; 87086; 87186; 97162; 97166; 99284

== ENCOUNTER → 2023-08-26 11:03 | Outpatient (REF) | payer OTHER, MEDICARE, BC, SELFPAY ==
[2023-08-26 12:07] LABS: % Basophils 0.5 % (0-2); % Eosinophils 1.7 % (0-6); % Immature Granulocytes 1.1 % (0-0.5); % Lymphocytes 20.1 % (20.5-51.1); % Monocytes 10.6 % (1.7-9.3); Absolute Basophils 0.1 10^3/uL (0-0.2); Absolute Eosinophils 0.2 10^3/uL (0-0.7); Absolute Immature Granulocytes 0.1 10^3/uL (0-0.05); Absolute Lymphocytes 2.2 10^3/uL (1.2-3.4); Absolute Monocytes 1.2 10^3/uL (0.1-0.6); Absolute Neutrophils 7.2 10^3/uL (1.4-6.5); Hematocrit 37.4 % (39.0-52.0); Hemoglobin 12.4 g/dL (13.0-18.0); Mean Corp Hgb Conc. 33.2 g/dL (33.0-37.0); Mean Corpuscular Hgb 32.5 pg (27.0-31.0); Mean Corpuscular Volume 97.9 fL (80.0-94.0); Mean Platelet Volume 11.5 fL (7.4-10.4); Nucleated Red Blood Cells % 0 % (-); Platelet Count 299 10^3/uL (130-400); Red Blood Cell Count 3.82 10^6/uL (4.70-6.10); Red Cell Dist. Width 13.1 % (11.5-14.5); White Blood Cell Count 10.9 10^3/uL (4.8-10.8)
[2023-08-26 12:23] LABS: Blood Urea Nitrogen 30 mg/dl (9-20); Calcium 8.7 mg/dl (8.4-10.2); Carbon Dioxide 24 mmol/L (22-30); Chloride 102 mmol/L (98-107); Glucose 82 mg/dl (70-99); Potassium 4.6 mmol/L (3.5-5.1); Sodium 135 mmol/L (135-145); eGFR 41.44
== END ==
LOC: OLABP 11:03
PROVIDERS: ATTENDING PHYSICIAN Family Medicine
DX: I25.10 Atherosclerotic heart disease of native coronary artery without angina pectoris (principal); N18.30 Chronic kidney disease, stage 3 unspecified; Z85.048 Personal history of other malignant neoplasm of rectum, rectosigmoid junction, and anus; I50.22 Chronic systolic (congestive) heart failure; I48.0 Paroxysmal atrial fibrillation; N39.0 Urinary tract infection, site not specified
CPT/HCPCS: 36415; 80048; 85025

== ENCOUNTER → 2023-09-05 18:51 | Outpatient (REF) | payer OTHER, MEDICARE, BC, SELFPAY | LOC: OLABP 18:51 | PROVIDERS: ATTENDING PHYSICIAN Specialist | DX: R33.9 Retention of urine, unspecified (principal); N39.0 Urinary tract infection, site not specified | CPT/HCPCS: 87077; 87086; 87186 ==

== ENCOUNTER → 2023-11-08 09:26 | Outpatient (REF) | payer MEDICARE, BC, SELFPAY ==
[2023-11-08 11:13] LABS: % Basophils 0.6 % (0-2); % Eosinophils 1.8 % (0-6); % Immature Granulocytes 0.6 % (0-0.5); % Lymphocytes 28.6 % (20.5-51.1); % Neutrophils 59.4 % (42.2-75.2); Absolute Eosinophils 0.1 10^3/uL (0-0.7); Absolute Monocytes 0.6 10^3/uL (0.1-0.6); Absolute Neutrophils 4.2 10^3/uL (1.4-6.5); Hematocrit 43.5 % (39.0-52.0); Hemoglobin 14.1 g/dL (13.0-18.0); Mean Corp Hgb Conc. 32.4 g/dL (33.0-37.0); Mean Corpuscular Hgb 32.3 pg (27.0-31.0); Mean Corpuscular Volume 99.8 fL (80.0-94.0); Mean Platelet Volume 11.9 fL (7.4-10.4); Nucleated Red Blood Cells % 0 % (-); Platelet Count 179 10^3/uL (130-400); Red Blood Cell Count 4.36 10^6/uL (4.70-6.10); White Blood Cell Count 7.1 10^3/uL (4.8-10.8)
[2023-11-08 11:23] LABS: ALT (SGPT) 27 U/L (0-50); AST (SGOT) 36 U/L (17-59); Albumin 3.7 g/dl (3.5-5.0); Alkaline Phosphatase 92 U/L (38-126); Blood Urea Nitrogen 24 mg/dl (9-20); Calcium 9.1 mg/dl (8.4-10.2); Calcium 9.3 mg/dl (8.4-10.2); Carbon Dioxide 29 mmol/L (22-30); Chloride 104 mmol/L (98-107); Glucose 89 mg/dl (70-99); HDL Cholesterol 53 mg/dl; LDL Cholesterol, Calculated 59 mg/dl; Potassium 4.6 mmol/L (3.5-5.1); Sodium 140 mmol/L (135-145); Total Bilirubin 0.9 mg/dl (0.2-1.3); Total Cholesterol 126 mg/dl (50-199); Total Protein 6.4 g/dl (6.3-8.2); Triglyceride 73 mg/dl (10-149); Very Low Density Lipoprotein 14 mg/dl (0-30); eGFR 35.76
[2023-11-08 11:53] LABS: Intact PTH 183.9 pg/ml (13.6-85.8)
== END ==
LOC: REG 09:26
PROVIDERS: ATTENDING PHYSICIAN Nuclear Medicine Nuclear Cardiology; FAMILY PHYSICIAN Family Medicine; REFERRING PHYSICIAN Specialist
DX: I10 Essential (primary) hypertension (principal); I25.10 Atherosclerotic heart disease of native coronary artery without angina pectoris; E78.2 Mixed hyperlipidemia; N18.32 Chronic kidney disease, stage 3b
CPT/HCPCS: 36415; 80053; 80061; 83970; 85025

== ENCOUNTER 2023-12-02 22:07 | Observation (INO) | payer MEDICARE, BC, SELFPAY ==
[2023-12-02 18:26] VITALS: BP 168/72
[2023-12-02 18:50] LABS: % Basophils 0.3 % (0-2); % Eosinophils 0.3 % (0-6); % Immature Granulocytes 0.3 % (0-0.5); % Lymphocytes 13.9 % (20.5-51.1); % Monocytes 12.4 % (1.7-9.3); % Neutrophils 72.8 % (42.2-75.2); Absolute Monocytes 0.9 10^3/uL (0.1-0.6); Absolute Neutrophils 5.2 10^3/uL (1.4-6.5); Hematocrit 44.2 % (39.0-52.0); Hemoglobin 15.1 g/dL (13.0-18.0); Mean Corp Hgb Conc. 34.2 g/dL (33.0-37.0); Mean Corpuscular Hgb 32.5 pg (27.0-31.0); Mean Corpuscular Volume 95.3 fL (80.0-94.0); Nucleated Red Blood Cells % 0 % (-); Platelet Count 158 10^3/uL (130-400); Red Blood Cell Count 4.64 10^6/uL (4.70-6.10); Red Cell Dist. Width 15.3 % (11.5-14.5); White Blood Cell Count 7.2 10^3/uL (4.8-10.8)
[2023-12-02 19:07] LABS: ALT (SGPT) 23 U/L (0-50); AST (SGOT) 34 U/L (17-59); Albumin 4.1 g/dl (3.5-5.0); Alkaline Phosphatase 81 U/L (38-126); Blood Urea Nitrogen 26 mg/dl (9-20); Calcium 9.5 mg/dl (8.4-10.2); Carbon Dioxide 26 mmol/L (22-30); Chloride 104 mmol/L (98-107); Glucose 140 mg/dl (70-99); Potassium 4.5 mmol/L (3.5-5.1); Sodium 139 mmol/L (135-145); Total Bilirubin 0.7 mg/dl (0.2-1.3); Total Protein 6.8 g/dl (6.3-8.2)
[2023-12-02 19:44] LABS: Urine Albumin 1+ (Neg - Trace); Urine Bilirubin Negative (Negative); Urine Character Clear (Clear); Urine Color Yellow; Urine Glucose Negative (Negative); Urine Ketone Trace (Negative); Urine Leukocyte 2+ (Negative); Urine Nitrite Positive (Negative); Urine Occult Blood Trace (Negative); Urine Specific Gravity 1.025 (<1.030); Urine Urobilinogen Negative (Neg - 1+)
[2023-12-02 19:51] LABS: Urine Squamous Cell 0-2 /LPF (Few)
[2023-12-02 19:52] LABS: Urine Red Blood Cell 0-2 /HPF (0-2); Urine White Cell 80-90 /HPF (0-5)
[2023-12-02 19:53] LABS: Urine Bacteria Few (Negative)
--- NOTE | 2023-12-02 20:01 | ED.GENMED ---
History of Present Illness
General
Chief Complaint: Change in Mental Status
Source: patient and pet care technician
Exam Limitations: none
Time Seen by Provider: 12/02/23 19:52
History of Present Illness
History of Present Illness:
See MDM
Past History
Past History
ED Past Medical History: CAD, Cancer (Colon, Prostate, Skin, Rectal), HTN, Hypercholesterolemia, [place], Psychiatric (Depression) and Other (PNA, IBS)
ED Past Surgical History: Bowel resection, Cardiac (Stent), Orthopedic (Left rotator cuff, Left hip surgery, ), Tonsilectomy and Other (Ileostomy, Hernia repair, Rectum removed, )
Social History
Tobacco: Non-smoker
Alcohol: Occasional
Drug: None
Personal:
Living: alone (Has care givers)
Employment: Employed
Family History
Family History: Hypertension
Phy Exam
Physical Exam
Physical Exam:
See MDM
Course
Orders/Labs/Results
Orders:
Orders
12/02/23 18:42
Complete Blood Count/With Diff Urgent
Comprehensive Metabolic Panel Urgent
12/02/23 19:36
Urinalysis Reflex To Culture Urgent
Urine Microscopic Reflex Cult Urgent
Urine Culture Urgent
URSZULA Source: U
Specimen Description:
12/02/23 20:01
CR Chest - 2 Views Urgent
Comment:
Reason For Exam: cough
12/02/23 20:16
COVID-19 Antigen Urgent
Source: Nasal Swab
12/02/23 21:18
0.9% Sodium Chloride 500 ml [Nss] 500 ml IV BOLUS
Abnormal Lab Results
12/02/23 12/02/23 12/02/23
18:42 19:36 20:16
RBC 4.64 L 10^6/uL
(4.70-6.10)
MCV 95.3 H fL
(80.0-94.0)
MCH 32.5 H pg
(27.0-31.0)
RDW 15.3 H %
(11.5-14.5)
MPV 11.0 H fL
(7.4-10.4)
Absolute Lymphs (auto) 1.0 L 10^3/uL
(1.2-3.4)
Absolute Monos (auto) 0.9 H 10^3/uL
(0.1-0.6)
Lymphocytes % 13.9 L %
(20.5-51.1)
Monocytes % 12.4 H %
(1.7-9.3)
BUN 26 H mg/dl
(9-20)
Creatinine 1.7 H mg/dL
(0.7-1.3)
Glucose 140 H mg/dl
(70-99)
Urine Ketones Trace A
(Negative)
Ur Occult Blood Reflex Trace A
(Negative)
Urine Nitrite (Reflex) Positive A
(Negative)
Leukocyte Esterase Rfl 2+ A
(Negative)
Urine WBC (Reflex) 80-90 A /HPF
(0-5)
Urine Bacteria (Reflex) Few A
(Negative)
Urine Albumin (Reflex) 1+ A
(Neg - Trace)
SARS-CoV-2 Antigen Positive A
(Negative)
12/02/23 18:42
12/02/23 18:42
Vital Signs
Initial and Last Documented VS:
Initial Vital Signs
Temp Pulse Resp BP Pulse Ox
98.7 F 58 16 168/72 97
12/02/23 18:26 12/02/23 18:26 12/02/23 18:26 12/02/23 18:26 12/02/23 18:26
Last Documented Vital Signs
Temp Pulse Resp BP Pulse Ox
98.7 F 53 17 163/69 97
12/02/23 18:26 12/02/23 20:15 12/02/23 20:15 12/02/23 20:02 12/02/23 20:15
MDM/Problems Addressed
Differential Diagnosis Includes:
HPI and MDM Narrative:
88-year-old male presenting with caregiver and son for evaluation of altered mental status. He recently returned from a trip from [place]. He now has a dry cough. He recently had his chronic Olguin changed a few days ago. Family has noted mild
changes in his mental status.
On exam, he is well-appearing nontoxic. Lungs are clear. Will obtain COVID testing and chest x-ray. Blood work is returning showing no significant abnormality from baseline. Urine has evidence of bacteria. We discussed the possibility of viral
syndrome versus UTI versus colonization versus pneumonia.
Physical exam
General: Well appearing and non-toxic
HEENT: protecting airway. Mildly dry mucous Membranes
Neck: appears supple
CV: No evidence of cyanosis
Resp: No accessory muscle use. Lungs clear
Abd: Non-distended. Soft and nontender
Extremities: No deformities
Neuro: alert
Psych: Normal affect
Skin: Intact
Problems Addressed including Acute and Chronic Conditions affecting care:
1. Altered mental status
Acuity: acute
Prognosis: stable
Details: Possibly in the setting of UTI. Will obtain COVID testing and chest x-ray
Updates
Patient found to be COVID-positive. Chest x-ray clear. Given the mild altered mental status, mild dehydration and COVID, will give IV fluids and admit
Differential Diagnosis (but not limited to): Pneumonia, UTI, COVID
Testing considered: CT head
Drug therapy (if applicable): OTC meds, please see d/c instruction regarding Rx drugs
Amount and/or Complexity of Data Reviewed
Clinical info obtained from: Patient
External data reviewed: N/A
Labs I independently reviewed (but not limited to): White blood cell count normal
Radiology: X-ray independently reviewed: Chest x-ray clear
Pulse Ox: not hypoxic
EKG independently reviewed: N/A
Systems Integration Advisor: Sinus rhythm
Critical Care: N/A
Risk of Complication:
Social Determinants of health: Good social support
Discussed with other providers: Hospitalist
Escalation of Care includes Admit/Obs: Given the altered mental status and COVID, will admit
Occasional wrong word or 'sound a like' substitutions may have occurred due to the inherent limitations of voice recognition software. Read the chart carefully and recognize, using context, where substitutions have occurred.
*Critical Care Note
Total Time (30-74mins, 75-104mins- exclusive of procedures): Not Applicable
ED Attending Note
-
Portions of this chart may have been created with voice recognition software.� Occasional wrong word or��sound alike� substitutions may have occurred due to the inherent limitations of voice recognition software.
Discharge Plan
Departure
Patient Disposition: Admit
Date of Disposition: 12/02/23
Time of Disposition: 21:29
Admit to: Med/Surg
Presentation/result/management discussed w/ accepting MD/DO: Hospitalist
Discharge Problem:
COVID, Acute dehydration, Altered mental status
Prescriptions:
No Action
latanoprost 1 DROP drops
1 drp BOTH EYES HS
Patient Comments:
BOTH EYES
ranolazine 500 MG tablet extended release 12 hr
1,000 mg PO BID Qty: 120 0RF
aspirin 81 mg Tablet,Delayed Release (Dr/Ec)
81 mg PO DAILY
atorvastatin 40 mg Tablet
40 mg PO DAILY Qty: 30 0RF
metoprolol succinate 25 mg Tablet Extended Release 24 Hr
12.5 mg PO DAILY Qty: 30 0RF
torsemide 5 mg Tablet
5 mg PO DAILY
midodrine 2.5 mg Tablet
2.5 mg PO BIDPRN PRN (Reason: SBP Less Than 120)
isosorbide mononitrate 60 mg tablet extended release 24 hr
60 mg PO HS
Eliquis 2.5 MG tablet
2.5 mg PO BID
acetaminophen [Tylenol Extra Strength] 500 mg Tablet
1,000 mg PO TID Qty: 10 0RF
oxycodone 5 mg Tablet
5 mg PO Q4HPRN PRN (Reason: moderate/severe pain) Qty: 4 0RF
Referrals:
Robbin Haile MD [Family Provider] -
Interventions
Interventions:
*Risk Screen - Suicide Last Done: 12/02/23 18:26
*General Assessment Last Done: 12/02/23 18:26
*Neglect/Abuse Screening Last Done: 12/02/23 18:26
ED- Fall Risk Assessment Last Done: 12/02/23 20:04
*ED COVID-19 Vaccine History Last Done: 12/02/23 18:26
ED- Neurological Assessment Last Done: 12/02/23 20:04
ED- Cardiac Assessment Last Done: 12/02/23 20:04
Discharge Date and Time
Print Language: JAMAICAN
[2023-12-02 20:02] VITALS: BP 163/69
[2023-12-02 20:35] LABS: COVID-19 Antigen Positive (Negative)
[2023-12-02 21:00] VITALS: BP 164/60
[2023-12-02] MEDS: NSS 500 IV (21:24)
--- NOTE | 2023-12-02 21:26 | HPS.HSE ---
Family Physician
-
Family Physician: Robbin Haile
Chief Complaint
-
cough
dizzy
History of Present Illness
88 year old with PMH fot CAD, colon ca, prostate ca, skin ca, rectal ca, HTN, HLD, Depression, PNA, IBS presented to us with dizzy for past three days. stated non productive cough. denied fever, chills, chest pain, sob. denied abdominal pain, n,v,d.
denied dysuria or hematuria. he just came back from [place] on Friday. linux support engineer noted confusion at home.
positive for COVID. received normal saline in ER. admitting for further management.
Medical History
Past Medical History
Past Medical History: Reports Other
Additional Past Medical History:
CAD
hld
atrial fib
orthostatic hypotension
prostate cancer
Non ST elevated [place]
stage 3b kidney disease
Chronic Olguin catheter
Urinary retention
Colon cancer
Left femur fracture
Rectal cancer surgery
Past Surgical History: Reports Other
Additional Past Surgical History:
Colon resection
Ileostomy
Left total hip repair
Left rotator cuff
Bilateral cataract surgery
Hernia repair
Left femur ORIF
.
Social History
Tobacco: Non-smoker
Alcohol: Daily (1 glass of wine daily)
Drug: None
Family History
Family History: Not pertinent
Allergies / Home Medications
Allergies reflects when Allergies were last updated in [employer].
Home Medications with original date entered in [employer]
Allergy/Medication List:
Allergies
Allergy/AdvReac Type Severity Reaction Status Date / Time
No Known Allergies Allergy Verified 09/16/22 19:31
Home Medications
latanoprost 0.005 % eye drops 1 drp BOTH EYES HS Eye condition 05/22/11
ranolazine 500 mg tablet,extended release,12 hr 1,000 mg (2 x 500 mg) PO BID #120 tabs 11/06/20
aspirin 81 mg tablet,delayed release 81 mg PO DAILY Blood clot prevention/tx 09/16/22
atorvastatin 40 mg tablet 40 mg PO DAILY #30 tabs 09/20/22
metoprolol succinate 25 mg tablet,extended release 24 hr 12.5 mg (1/2 x 25 mg) PO DAILY #30 tabs 09/20/22
isosorbide mononitrate 60 mg tablet,extended release 24 hr 60 mg PO HS Heart Disease/Condition 08/09/23
midodrine 2.5 mg tablet 2.5 mg PO BIDPRN PRN SBP Less Than 120 08/09/23
torsemide 5 mg tablet 5 mg PO DAILY Fluid Retention/Swelling 08/09/23
apixaban 2.5 mg tablet (Eliquis) 2.5 mg PO BID Blood Clot Prevention/Tx 08/10/23
acetaminophen 500 mg tablet (Tylenol Extra Strength) 1,000 mg (2 x 500 mg) PO TID #10 tabs 08/12/23
oxycodone 5 mg tablet 5 mg PO Q4HPRN PRN moderate/severe pain #4 tabs 08/12/23
Review of Systems
-
Constitutional: Reports No Symptoms
EENT: Reports No Symptoms
Respiratory: Reports Cough
Cardiac: Reports No Symptoms
Abdomen/GI: Reports No Symptoms
: Reports No Symptoms
Musculoskeletal: Reports No Symptoms
Skin: Reports No Symptoms
Neurological: Reports Dizzy and Weakness
Endocrine: Reports No Symptoms
Hematologic/Lymphatic: Reports No Symptoms
Psych: Reports No Symptoms
Physical Exam
Vital Signs
Vital Signs
Temp Pulse Resp BP Pulse Ox
98.7 F 53 17 163/69 97
12/02/23 18:26 12/02/23 20:15 12/02/23 20:15 12/02/23 20:02 12/02/23 20:15
Physical Exam
General: Well Developed, Well Nourished and No Apparent Distress
HEENT: NormoCephalic, Moist mucous membranes and Atraumatic
Respiratory: Clear
Cardiac: S1/S2 and Regular Rhythm; No Murmur or Rub
GI: Soft, Non Tender, Non Distended and Normal Bowel Sounds; No Organomegaly
Rectal: Deferred by Provider
Musculoskeletal: No Clubbing, No Cyanosis and No Edema
Skin: No Rash
Neuro: AO x 3 and Nonfocal/grossly intact
Psych: Calm
Laboratory Results
-
12/02/23 18:42
12/02/23 18:42
Laboratory Results
Total Bilirubin 0.7 mg/dl (0.2-1.3) 12/02/23 18:42
AST 34 U/L (17-59) 12/02/23 18:42
ALT 23 U/L (0-50) 12/02/23 18:42
Alkaline Phosphatase 81 U/L (38-126) 12/02/23 18:42
Data Reviewed
-
Diagnostic Radiology: Report Reviewed by me
Lab Data: Labs Reviewed by me
Impression/Plan
-
# TME likely from acute COVID 19 infection.
-Chest x-ray with no acute cardiopulmonary process
-positive covid
-oxygenating very well on RA
-hold paxlovid
-patient vaccinated with 4 doses of Pfizer
-ctm
# Generalized weakness likely from COVID-19 infection
-PT/OT consulted
# Urinalysis with bacteriuria
-Patient has chronic Olguin
-No urinary symptoms
-Defer antibiotics at this time
# Chronic kidney disease stage IIIb
-creatinine 1.7, BUN 26
-ctm
#Coronary Artery Disease s/p Stent
-Continue aspirin
-Continue isosorbide mononitrate and ranolazine and eliquis
#Chronic HFrEF
#Ischemic Cardiomyopathy
-Patient not in acute exacerbation
-Hold torsemide
-Monitor Is&Os and Daily Weights
#Paroxysmal Atrial Fibrillation
-Eliquis restarted
-Continue metoprolol for rate control
#Hypotension
#Hyperlipidemia
-Continue atorvastatin
#Hx Prostate Cancer s/p Radioactive Seed Implants
#Hx Colon Cancer / Rectal Cancer s/p Colectomy with Ileostomy. Chronic Olguin.
#DVT proph: SCDs and Eliquis
#Code Status: Full Code
--- NOTE | 2023-12-02 21:28 | W.PN.UPDATE ---
Update Note
Progress Note Update
This is an addendum to H&P written by HIGH SPEED OPERATOR Leatha Burnette
I saw and examined the patient.
The HIGH SPEED OPERATOR's note was reviewed and I agree with the note.
Comment:
Mr. Erik Isabel is a 88 yo man with hx afib, CAD, CKD III, HFpEF/ischemic cardiomyopathy, paroxysmal afib, prostate CA presents to the ER with cough and confusion found to be covid +
Triage VS: T 98.7, P 58, RR 16, BP 168/72, SpO2 97% RA
LABS: WBC 7.2, Hg 15.1, PLT 158, Na 139, K+ 4.5, Cr 1.7, Glucose 140, liver enzymes WNL
UA with 80-90 WBC
COVID +
CXR
IMPRESSION:
No acute cardiopulmonary process.
TME/weakness 2/2 Covid
-patient is not hypoxic
-admit to observation
-PT/OT in AM
-consider Paxlovid if no improvement in AM (would need to hold statin)
-s/p 500 cc fluid in ER
-continue midodrine PRN
CKD III
-creatinine at baseline
Heart failure preserved EF
-TTE 04/10 with EF 55-60%
-hold Torsemide for now, monitor volume status closely
UA with inflammation
patient has chronic pringle, no new urinary symptoms
weakness associated with cough and explained by covid
Atrial Fibrillation
CAD
awaiting med rec, will continue home medications
[2023-12-02 22:00] VITALS: BP 160/144
[2023-12-02 23:01] VITALS: BP 129/89
[2023-12-02] MEDS: IMDUR (EXTENDED RELEASE) 60 MG PO (23:31)
[2023-12-02] MEDS: MUCINEX 600 MG PO (23:31)
--- NOTE | 2023-12-03 03:04 | DOWNTIME ---
There was a [employer] Armored Cable Machine Operator Downtime on 12/03/2023 from 0100 to 12/03/2023 at 0255. Downtime documentation of patient's care, including medication administrations, has been reconciled in the electronic record per guidelines. Refer to the
patient's paper chart under the miscellaneous tab to see printed paper medication records and downtime forms.
[2023-12-03 03:19] VITALS: BP 138/61
[2023-12-03 06:00] VITALS: BMI 23.8
[2023-12-03 06:49] LABS: % Basophils 0.3 % (0-2); % Eosinophils 0.1 % (0-6); % Immature Granulocytes 0.4 % (0-0.5); % Monocytes 16.2 % (1.7-9.3); Absolute Lymphocytes 1.6 10^3/uL (1.2-3.4); Absolute Monocytes 1.2 10^3/uL (0.1-0.6); Absolute Neutrophils 4.3 10^3/uL (1.4-6.5); Hematocrit 38.7 % (39.0-52.0); Hemoglobin 13.1 g/dL (13.0-18.0); Mean Corp Hgb Conc. 33.9 g/dL (33.0-37.0); Mean Corpuscular Hgb 32.2 pg (27.0-31.0); Mean Corpuscular Volume 95.1 fL (80.0-94.0); Mean Platelet Volume 12.1 fL (7.4-10.4); Nucleated Red Blood Cells % 0 % (-); Platelet Count 137 10^3/uL (130-400); Red Blood Cell Count 4.07 10^6/uL (4.70-6.10); Red Cell Dist. Width 15.3 % (11.5-14.5); White Blood Cell Count 7.1 10^3/uL (4.8-10.8)
[2023-12-03 07:00] VITALS: BP 133/54
[2023-12-03 07:15] LABS: Blood Urea Nitrogen 24 mg/dl (9-20); Calcium 8.6 mg/dl (8.4-10.2); Carbon Dioxide 25 mmol/L (22-30); Chloride 105 mmol/L (98-107); Estimated Creatinine Clearance 40 ml/min; Glucose 91 mg/dl (70-99); Potassium 3.9 mmol/L (3.5-5.1); Sodium 138 mmol/L (135-145)
[2023-12-03] MEDS: ELIQUIS 2.5 MG PO (09:19)
[2023-12-03] MEDS: RANEXA EXTENDED RELEASE 1000 MG PO (09:20)
[2023-12-03] MEDS: ASPIR LOW (ENTERIC COATED) 81 MG PO (09:20)
[2023-12-03] MEDS: TOPROL XL 12.5 MG PO (09:20)
[2023-12-03] MEDS: REFRESH CELLUVISC GEL 1 DROPS BOTH EYES (09:20)
[2023-12-03] MEDS: LIPITOR 40 MG PO (09:21)
[2023-12-03] MEDS: MUCINEX 600 MG PO (09:21)
[2023-12-03 10:07] VITALS: BP 148/64; BP 152/60; PULSE 51; O2SAT 98
[2023-12-03 11:00] VITALS: BP 127/57
--- NOTE | 2023-12-03 11:27 | CM ---
Addendum entered by Gianni Quiles 12/03/23 13:22:
Discharge order is noted. CM spoke to pt's son Ranjeet and she stated that caregiver Carlos will transport pt home at 2:30 p.m. per son Ranjeet, pt has 3 caregivers.
[facility].
Please fax discharge instructions to [facility] at [phone]
D/C plan: [facility], caregiver services and family support. caregiver Shallrobert to transport.
Addendum entered by Gianni Quiles 12/03/23 11:35:
Correction: BOTELLO letter and not IMM placed on chart, pt has a copy.
Original Note:
CM following re: discharge planning.
reviewed pt's chart, met with pt.
Pt is an 88 year old male, admitted with OBS status and primary dx of COVID 19. OBS status explained to the pt, pt expressed understaging, refused to sign. IMM placed on chart, pt has a copy.
Pt lives alone in a 2SH, 1 step to enter, has supportive son and a caregiver. Pt ambulates with a walker and a cane, known [facility] and was at [facility] a few times in the past.
PCP: Robbin Haile
Pharmacy: [facility]
D/C plan: uncertain at this time and will depend on pt's progress, probably home with and caregiver/family support. .
CM will follow with discharge plan updates as hospitalization progresses
--- NOTE | 2023-12-03 12:44 | W.DS.TRANS ---
DC Summary - [facility]
-
Discharge Instructions:
Discharge Diagnosis/Procedures COVID
TME, improved
Diet Regular
Instructions:
Stand-Alone Forms:
Changes to Home Medications: No
Discharge Medications:
DC Medications w/original date entered in [facility]
latanoprost 0.005 % eye drops 1 drp BOTH EYES HS Eye condition 05/22/11
aspirin 81 mg tablet,delayed release 81 mg PO DAILY Blood clot prevention/tx 09/16/22
metoprolol succinate 25 mg tablet,extended release 24 hr 12.5 mg (1/2 x 25 mg) PO DAILY #30 tabs 09/20/22
isosorbide mononitrate 60 mg tablet,extended release 24 hr 60 mg PO QPM Heart Disease/Condition 08/09/23
midodrine 2.5 mg tablet 2.5 mg PO BIDPRN PRN SBP Less Than 120 08/09/23
apixaban 2.5 mg tablet (Eliquis) 2.5 mg PO BID Blood Clot Prevention/Tx 08/10/23
acetaminophen 500 mg tablet (Tylenol Extra Strength) 500 mg PO Q6HPRN PRN mild pain/fever 12/02/23
carboxymethylcellulose sodium 1 % eye liquid gel drops 1 drp BOTH EYES QID Eye Condition 12/02/23
ranolazine 1,000 mg tablet,extended release,12 hr 1,000 mg PO BID angina 12/02/23
torsemide 10 mg tablet 5 mg PO DAILY Fluid Retention/Swelling 12/02/23
atorvastatin 40 mg tablet 40 mg PO DAILY #30 tabs 12/03/23
ranolazine 500 mg tablet,extended release,12 hr 1,000 mg (2 x 500 mg) PO BID #120 tabs 12/03/23
Home Medication Changes
Pending Results: No
[2023-12-03] MEDS: REFRESH CELLUVISC GEL BOTH EYES (14:27)
[2023-12-03 15:00] VITALS: BP 132/67
== END 2023-12-03 15:58 | disposition home health service (06) ==
LOC: 2 NORTH 22:07
PROVIDERS: Emergency Medicine; Registered Nurse; ADMITTING PHYSICIAN Student in an Organized Health Care Education/Training Program; ATTENDING PHYSICIAN Internal Medicine; EMERGENCY PHYSICIAN Student in an Organized Health Care Education/Training Program; FAMILY PHYSICIAN Family Medicine
DX: U07.1 COVID-19 (principal); G92.8 Other toxic encephalopathy; I13.0 Hypertensive heart and chronic kidney disease with heart failure and stage 1 through stage 4 chronic kidney disease, or unspecified chronic kidney disease; E78.00 Pure hypercholesterolemia, unspecified; I50.22 Chronic systolic (congestive) heart failure; I95.1 Orthostatic hypotension; R33.9 Retention of urine, unspecified; E86.0 Dehydration; R82.71 Bacteriuria; I48.0 Paroxysmal atrial fibrillation; N18.32 Chronic kidney disease, stage 3b; I25.5 Ischemic cardiomyopathy; I25.10 Atherosclerotic heart disease of native coronary artery without angina pectoris; I25.2 Old myocardial infarction; F32.A Depression, unspecified; Z87.01 Personal history of pneumonia (recurrent); Z82.49 Family history of ischemic heart disease and other diseases of the circulatory system; Z95.5 Presence of coronary angioplasty implant and graft; Z85.048 Personal history of other malignant neoplasm of rectum, rectosigmoid junction, and anus; Z85.46 Personal history of malignant neoplasm of prostate; Z79.82 Long term (current) use of aspirin; Z90.49 Acquired absence of other specified parts of digestive tract; Z93.2 Ileostomy status; Z92.3 Personal history of irradiation; Z85.038 Personal history of other malignant neoplasm of large intestine; Z79.01 Long term (current) use of anticoagulants
CPT/HCPCS: 71046; 80048; 80053; 81003; 81015; 85025; 87077; 87086; 87186; 87811; 96360; 97163; 97167; 99285; G0378

== ENCOUNTER → 2023-12-12 12:45 | Outpatient (REF) | payer MEDICARE, BC, SELFPAY | LOC: CLAB 12:45 | PROVIDERS: ATTENDING PHYSICIAN Specialist | DX: N39.0 Urinary tract infection, site not specified (principal) | CPT/HCPCS: 87077; 87086 ==

== ENCOUNTER → 2023-12-17 09:55 | Outpatient (REF) | payer MEDICARE, BC, SELFPAY | LOC: RST 09:55 | PROVIDERS: ATTENDING PHYSICIAN Family Medicine | DX: R13.10 Dysphagia, unspecified (principal); I42.9 Cardiomyopathy, unspecified | CPT/HCPCS: 74230; 92611 ==

== ENCOUNTER 2024-01-09 12:21 | Emergency (ER) | payer MEDICARE, BC, SELFPAY ==
[2024-01-09 12:23] VITALS: BP 113/63
--- NOTE | 2024-01-09 13:26 | ED.GENMED ---
History of Present Illness
General
Chief Complaint: Fainting Sensation
Source: patient and care associate
Time Seen by Provider: 01/09/24 13:11
History of Present Illness
History of Present Illness:
88yoM with a history of coronary artery disease, atrial fibrillation, CHF, hypertension, hyperlipidemia, and CKD presenting with his caregiver for evaluation of shakiness. Symptoms started yesterday afternoon. He states he did not have a good sleep
the night before and he was starting to feel tired. He was trying to stay awake and then he started having head and body shaking. This resolved and he was initially feeling well this morning. He did some leg exercises and had another episode of
shaking this morning. He was able to take a nap but again started having some shakiness so came to the ED. Patient is otherwise asymptomatic and denies any fevers, chills, chest pain, shortness of breath, falls, syncope. No true dizziness. He
reports good PO intake. Caregiver checks his vital signs several times daily and vitals have been stable. Of note, patient had COVID about 1 month ago.
Past History
Past History
ED Past Medical History: CAD, Cancer (Colon, Prostate, Skin, Rectal), HTN, Hypercholesterolemia, [place], Psychiatric (Depression) and Other (PNA, IBS)
ED Past Surgical History: Bowel resection, Cardiac (Stent), Orthopedic (Left rotator cuff, Left hip surgery, ), Tonsilectomy and Other (Ileostomy, Hernia repair, Rectum removed, )
Social History
Tobacco: Non-smoker
Alcohol: Occasional
Drug: None
Personal:
Living: alone (Has care givers)
Employment: Employed
Family History
Family History: Hypertension
Phy Exam
General Physical Exam
General Presentation: well appearing and no apparent distress
General age: appears stated age
General Skin: warm and dry
General Habitus: normal and elderly
General Mental: alert
Cardiovascular Exam
Cardiovascular Exam: no edema and bradycardia
Pulmonary Exam
Pulmonary Exam: lungs clear, no respiratory distress, no rales, no crackles and no wheezing
Gastrointestinal Exam
Gastrointestinal Exam: non tender, soft and non distended
Neurological Exam
Neurological Exam: alert
[place] Coma Scale
Eye Opening: Spontaneous
Verbal Response: Oriented
Motor Response: Obeys Commands
GCS Total Score: 15
Skin Exam
Skin Exam: normal color and warm/dry
Psychiatric Exam
Psychiatric Exam: normal mood/affect
Course
Orders/Labs/Results
Orders:
Orders
01/09/24 12:26
Electrocardiogram (*1) Urgent
Reason for Study: Fatigue / Weakness
EKG- Treatment ONCE
01/09/24 13:23
Cardiac Monitoring- Treatment ONCE
01/09/24 14:13
Complete Blood Count/With Diff Urgent
Comprehensive Metabolic Panel Urgent
Magnesium Urgent
Troponin I Urgent
Abnormal Lab Results
01/09/24
14:13
RBC 4.19 L 10^6/uL
(4.70-6.10)
MCV 97.9 H fL
(80.0-94.0)
MCH 33.4 H pg
(27.0-31.0)
MPV 12.1 H fL
(7.4-10.4)
Absolute Monos (auto) 0.8 H 10^3/uL
(0.1-0.6)
Monocytes % 10.2 H %
(1.7-9.3)
BUN 25 H mg/dl
(9-20)
Creatinine 1.5 H mg/dL
(0.7-1.3)
Total Protein 6.0 L g/dl
(6.3-8.2)
01/09/24 14:13
01/09/24 14:13
Vital Signs
Initial and Last Documented VS:
Initial Vital Signs
Temp Pulse Resp BP Pulse Ox
98.6 F 57 16 113/63 97
01/09/24 12:23 01/09/24 12:23 01/09/24 12:23 01/09/24 12:23 01/09/24 12:23
Last Documented Vital Signs
Temp Pulse Resp BP Pulse Ox
98.6 F 51 18 138/56 98
01/09/24 12:23 01/09/24 15:45 01/09/24 15:45 01/09/24 15:00 01/09/24 15:45
MDM/Problems Addressed
Differential Diagnosis Includes:
88yoM here with intermittent episodes of head and body shaking that began yesterday. No associated dizziness. No chills or rigors. No CP/SOB. He is afebrile and hemodynamically stable. He is well appearing in no distress. Exam is reassuring.
Differential diagnosis includes but is not limited to: uremia, electrolyte abnormality, arrhythmia
Initial ED plan: Place on telemetry monitor. Check cardiac labs and EKG.
*EKG
Interpreted by ED Provider?: Yes
EKG Intrepretation Date: 01/09/24
Heart Rate: 54
Rate: bradycardiac
Rhythm: sinus
[place]: left axis deviation
QRS Pattern: right bundle branch block
Ischemia: no ischemia
*Critical Care Note
Total Time (30-74mins, 75-104mins- exclusive of procedures): Not Applicable
Update Note
Update Note:
Creatinine 1.5 which is baseline. Remainder of labs unremarkable. EKG shows sinus bradycardia with a RBBB. No ectopy or ischemic changes. Troponin WNL. Patient ambulates with a walker at baseline. He was able to ambulate well here with a walker. No
indication for hospitalization. Unclear etiology of symptoms. Advised close PCP f/u and ED return precautions discussed. He was discharged in stable condition with his caregiver.
ED Attending Note
-
Portions of this chart may have been created with voice recognition software.� Occasional wrong word or��sound alike� substitutions may have occurred due to the inherent limitations of voice recognition software.
Discharge Plan
Departure
Patient Disposition: Home (Routine Discharge)
Date of Disposition: 01/09/24
Time of Disposition: 15:44
Patient with high blood pressure during this ER visit?: No
Discharge Problem:
Shakiness
Instructions: Tremor
Prescriptions:
No Action
latanoprost 1 DROP drops
1 drp BOTH EYES HS
Patient Comments:
BOTH EYES
aspirin 81 mg Tablet,Delayed Release (Dr/Ec)
81 mg PO DAILY
metoprolol succinate 25 mg Tablet Extended Release 24 Hr
12.5 mg PO DAILY Qty: 30 0RF
midodrine 2.5 mg Tablet
2.5 mg PO BIDPRN PRN (Reason: SBP Less Than 120)
isosorbide mononitrate 60 mg tablet extended release 24 hr
60 mg PO QPM
Eliquis 2.5 MG tablet
2.5 mg PO BID
acetaminophen [Tylenol Extra Strength] 500 mg tablet
500 mg PO Q6HPRN PRN (Reason: mild pain/fever)
torsemide 10 mg tablet
5 mg PO DAILY
carboxymethylcellulose sodium 1 % Drops, Liquid Gel
1 drp BOTH EYES QID
ranolazine 1,000 mg tablet extended release 12 hr
1,000 mg PO BID
atorvastatin 40 mg Tablet
40 mg PO DAILY Qty: 30 0RF
ranolazine 500 mg Tablet Extended Release 12 Hr
1,000 mg PO BID Qty: 120 0RF
Referrals:
Robbin Haile MD [Family Provider] -
Activity Restrictions/Additional Instructions:
Please follow-up with your family doctor. Return to the ER immediately with any new or worsening symptoms.
Interventions
Interventions:
*Risk Screen - Suicide Last Done: 01/09/24 13:46
*General Assessment Last Done: 01/09/24 13:46
*Neglect/Abuse Screening Last Done: 01/09/24 13:46
ED- Fall Risk Assessment Last Done: 01/09/24 14:16
*ED COVID-19 Vaccine History Last Done: 01/09/24 13:46
*Nursing Disposition Last Done: 01/09/24 16:03
ED- Cardiac Assessment Last Done: 01/09/24 14:15
ED- Neurological Assessment Last Done: 01/09/24 14:15
Discharge Date and Time
Discharge Date/Time: 01/09/24 16:04
Print Language: MONGOLIAN
[2024-01-09 13:45] VITALS: BMI 24.5
[2024-01-09 14:17] LABS: % Basophils 0.4 % (0-2); % Eosinophils 1.3 % (0-6); % Immature Granulocytes 0.5 % (0-0.5); % Lymphocytes 31.1 % (20.5-51.1); % Monocytes 10.2 % (1.7-9.3); % Neutrophils 56.5 % (42.2-75.2); Absolute Eosinophils 0.1 10^3/uL (0-0.7); Absolute Lymphocytes 2.4 10^3/uL (1.2-3.4); Absolute Monocytes 0.8 10^3/uL (0.1-0.6); Absolute Neutrophils 4.4 10^3/uL (1.4-6.5); Mean Corp Hgb Conc. 34.1 g/dL (33.0-37.0); Mean Corpuscular Hgb 33.4 pg (27.0-31.0); Mean Corpuscular Volume 97.9 fL (80.0-94.0); Mean Platelet Volume 12.1 fL (7.4-10.4); Nucleated Red Blood Cells % 0 % (-); Platelet Count 135 10^3/uL (130-400); Red Blood Cell Count 4.19 10^6/uL (4.70-6.10); Red Cell Dist. Width 14.1 % (11.5-14.5); White Blood Cell Count 7.7 10^3/uL (4.8-10.8)
[2024-01-09 14:18] VITALS: BP 157/60
[2024-01-09 14:34] LABS: ALT (SGPT) 24 U/L (0-50); AST (SGOT) 32 U/L (17-59); Albumin 3.5 g/dl (3.5-5.0); Alkaline Phosphatase 89 U/L (38-126); Blood Urea Nitrogen 25 mg/dl (9-20); Calcium 9.1 mg/dl (8.4-10.2); Carbon Dioxide 30 mmol/L (22-30); Chloride 101 mmol/L (98-107); Estimated Creatinine Clearance 38 ml/min; Glucose 94 mg/dl (70-99); Magnesium 1.8 mg/dl (1.6-2.3); Potassium 4.5 mmol/L (3.5-5.1); Sodium 139 mmol/L (135-145); Total Bilirubin 0.9 mg/dl (0.2-1.3)
[2024-01-09 15:00] VITALS: BP 138/56
== END 2024-01-09 16:04 | disposition home or self-care (01) ==
LOC: EMR 12:21
PROVIDERS: Physician Assistant; EMERGENCY PHYSICIAN Emergency Medicine; FAMILY PHYSICIAN Family Medicine
DX: R25.1 Tremor, unspecified (principal); R53.1 Weakness; R53.83 Other fatigue; I45.10 Unspecified right bundle-branch block; I25.10 Atherosclerotic heart disease of native coronary artery without angina pectoris; I13.0 Hypertensive heart and chronic kidney disease with heart failure and stage 1 through stage 4 chronic kidney disease, or unspecified chronic kidney disease; I50.9 Heart failure, unspecified; N18.9 Chronic kidney disease, unspecified; E78.00 Pure hypercholesterolemia, unspecified; I48.91 Unspecified atrial fibrillation; F32.A Depression, unspecified; I25.2 Old myocardial infarction; Z95.5 Presence of coronary angioplasty implant and graft; Z85.048 Personal history of other malignant neoplasm of rectum, rectosigmoid junction, and anus; Z85.46 Personal history of malignant neoplasm of prostate; Z85.828 Personal history of other malignant neoplasm of skin; Z87.01 Personal history of pneumonia (recurrent); Z98.0 Intestinal bypass and anastomosis status; Z79.82 Long term (current) use of aspirin; Z79.01 Long term (current) use of anticoagulants
CPT/HCPCS: 99283; 80053; 83735; 84484; 85025; 93005

== ENCOUNTER → 2024-03-24 16:21 | Outpatient (REF) | payer MEDICARE, BC, SELFPAY | LOC: RCS 16:21 | PROVIDERS: ATTENDING PHYSICIAN Nuclear Medicine Nuclear Cardiology; FAMILY PHYSICIAN Family Medicine | DX: I25.5 Ischemic cardiomyopathy (principal); I48.91 Unspecified atrial fibrillation | CPT/HCPCS: 93306 ==

== ENCOUNTER → 2025-03-22 17:13 | Outpatient (REF) | payer MEDICARE, BC, SELFPAY ==
[2025-03-22 17:57] LABS: Uric Acid 9.1 mg/dl (3.5-8.5)
== END ==
LOC: REG 17:13
PROVIDERS: ATTENDING PHYSICIAN Physician Assistant
DX: M25.561 Pain in right knee (principal); M79.641 Pain in right hand; M79.642 Pain in left hand
CPT/HCPCS: 36415; 73130; 84550